=== PATIENT | female | born 1990 | race Caucasian/White ===

== ENCOUNTER → 2021-05-29 | Emergency (ER) | payer OTHER ==
[~2021-05-29] VITALS: Ht 162.6 cm; Wt 70.8 kg
[~2021-05-29] MED LIST: PRENATAL + DHA1 EAC1 PO
== END | disposition home or self-care (01) ==
LOC: ER 13:04
DX: O26.893 Other specified pregnancy related conditions, third trimester (principal); R07.89 Other chest pain; R05 Cough; Z3A.29 29 weeks gestation of pregnancy

== ENCOUNTER 2021-06-01 17:18 | Outpatient (CLI) | payer OTHER | END 2021-06-01 22:51 | disposition left against medical advice (07) | LOC: OBS/DEL 17:18 | PROVIDERS: ATTEND Obstetrics & Gynecology | DX: O36.8130 Decreased fetal movements, third trimester, not applicable or unspecified (principal); Z3A.29 29 weeks gestation of pregnancy ==

== ENCOUNTER 2021-06-09 13:24 | Outpatient (CLI) | payer OTHER | END 2021-06-09 14:04 | disposition home or self-care (01) | LOC: PRENATAL 13:24 | PROVIDERS: ATTEND Obstetrics & Gynecology Maternal & Fetal Medicine | DX: O35.3XX1 Maternal care for (suspected) damage to fetus from viral disease in mother, fetus 1 (principal); O35.0XX1 Maternal care for (suspected) central nervous system malformation in fetus, fetus 1; O98.513 Other viral diseases complicating pregnancy, third trimester; Z36.89 Encounter for other specified antenatal screening; Z3A.30 30 weeks gestation of pregnancy ==

== ENCOUNTER 2021-08-03 18:55 | Inpatient (IN) | payer OTHER ==
[~2021-08-03] VITALS: Ht 162.6 cm; Wt 77.1 kg
[2021-08-03] MEDS ORDERED: IRON325 MG (20:00)
== END 2021-08-05 15:50 | disposition home or self-care (01) | DRG 807 ==
LOC: LDR 18:55 → OB/GYN 18:55
PROVIDERS: ADMIT Obstetrics & Gynecology; ATTEND Obstetrics & Gynecology
PROC: 10E0XZZ Delivery of Products of Conception, External Approach (ICD-10-PCS; principal; 2021-08-03)
PROC: 0KQM0ZZ Repair Perineum Muscle, Open Approach (ICD-10-PCS; 2021-08-03)
PROC: 4A1HXFZ Monitoring of Products of Conception, Cardiac Rhythm, External Approach (ICD-10-PCS; 2021-08-03)
DX: O70.1 Second degree perineal laceration during delivery (principal); Z37.0 Single live birth; Z3A.38 38 weeks gestation of pregnancy

== ENCOUNTER 2021-08-12 17:34 | Inpatient (IN) | payer OTHER ==
[~2021-08-12] VITALS: Ht 162.6 cm; Wt 63.5 kg
[~2021-08-12 17:34] MED LIST changes: +IRON325 MG
[2021-08-13] MEDS ORDERED: SURFAK240 M1 PO (15:47)
[2021-08-13] MEDS ORDERED: METRONIDAZOLE500 MG PO (15:48)
[2021-08-13] MEDS ORDERED: AMOX1TAB5 PO (15:50)
== END 2021-08-13 20:35 | disposition home or self-care (01) | DRG 769 ==
LOC: ER 17:34 → O/R 08-13 07:29 → SEC-K 08-13 07:29 → O/R 08-13 14:51
PROVIDERS: ADMIT Obstetrics & Gynecology; ATTEND Obstetrics & Gynecology
PROC: 0KQM0ZZ Repair Perineum Muscle, Open Approach (ICD-10-PCS; 2021-08-13)
PROC: 10D17ZZ Extraction of Products of Conception, Retained, Via Natural or Artificial Opening (ICD-10-PCS; principal; 2021-08-13 12:00)
DX: O72.2 Delayed and secondary postpartum hemorrhage (principal); O90.1 Disruption of perineal obstetric wound

== ENCOUNTER 2021-09-25 09:27 | Emergency (ER) | payer OTHER ==
[~2021-09-25] VITALS: Ht 152.4 cm; Wt 68.0 kg
[~2021-09-25 09:27] MED LIST changes: +AMOX1TAB5 PO; +METRONIDAZOLE500 MG PO; +SURFAK240 M1 PO
[2021-09-25] MEDS ORDERED: ZINC10 M1 (09:36)
== END 2021-09-25 14:34 | disposition home or self-care (01) ==
LOC: ER 09:27
DX: N92.5 Other specified irregular menstruation (principal)

== ENCOUNTER 2021-10-19 22:40 | Emergency (ER) | payer OTHER ==
[~2021-10-19] VITALS: Ht 162.6 cm; Wt 67.1 kg
[~2021-10-19 22:40] MED LIST changes: +ZINC10 M1
[2021-10-20] MEDS ORDERED: PROTONIX40 MG PO (04:41)
[2021-10-20] MEDS ORDERED: DOLOGESIC 500-1 EACH PO (04:41)
== END 2021-10-20 04:50 | disposition home or self-care (01) ==
LOC: ER 22:40
DX: R10.13 Epigastric pain (principal); K29.70 Gastritis, unspecified, without bleeding

== ENCOUNTER 2021-10-23 19:27 | Emergency (ER) | payer OTHER ==
[~2021-10-23] VITALS: Ht 162.6 cm; Wt 65.8 kg
[~2021-10-23 19:27] MED LIST changes: +DOLOGESIC 500-1 EACH PO; +PROTONIX40 MG PO
== END 2021-10-23 23:35 | disposition home or self-care (01) ==
LOC: ER 19:27
DX: R10.9 Unspecified abdominal pain (principal)

== ENCOUNTER 2022-05-12 04:03 | Emergency (ER) | payer OTHER ==
[~2022-05-12] VITALS: Ht 170.2 cm; Wt 61.2 kg
== END 2022-05-12 11:14 | disposition home or self-care (01) ==
LOC: ER 04:03
DX: N61.0 Mastitis without abscess (principal); Z88.6 Allergy status to analgesic agent; Z87.09 Personal history of other diseases of the respiratory system

== ENCOUNTER 2023-05-30 21:31 | Emergency (ER) | payer OTHER ==
[~2023-05-30] VITALS: Ht 167.6 cm; Wt 51.7 kg
[2023-05-30] MEDS ORDERED: AMOX1TAB5 (21:43)
[2023-05-30] MEDS ORDERED: PEPCID AC20 MG (21:43)
[2023-05-31 00:58] LABS: HEMATOCRIT 37.1 % (36.0-45.00); HEMOGLOBIN 12.1 g/dL (12.0-15.00); MEAN CELL VOLUME 89.1 fL (80.00-100.00); MEAN CORPUSCULAR HEMOGLOBIN 29.1 pg (27.00-32.0); MEAN CORPUSCULAR HGB CONC 32.6 g/dl (32.0-36.0); PLATELET COUNT 277 K/uL (150-450); RED BLOOD COUNT 4.17 M/uL (4.00-6.00); RED CELL DISTRIBUTION WIDTH 13.9 % (11.5-14.5)
[2023-05-31] MEDS ORDERED: DOLOGESIC 500-1 EACH PO (04:34)
== END 2023-05-31 04:50 ==
LOC: ER 21:32
PROVIDERS: General Practice
DX: R53.81 Other malaise (principal); Z88.6 Allergy status to analgesic agent; R53.83 Other fatigue; J02.9 Acute pharyngitis, unspecified; Z20.822 Contact with and (suspected) exposure to COVID-19
CPT/HCPCS: 36415; 71046; 96365; 99284; J2405; J3490

== ENCOUNTER 2023-08-10 21:17 | Emergency (ER) | payer OTHER ==
[~2023-08-10] VITALS: Ht 162.6 cm; Wt 49.9 kg
[~2023-08-10 21:17] MED LIST changes: +AMOX1TAB5; +PEPCID AC20 MG
[2023-08-10 23:40] LABS: HEMATOCRIT 37.2 % (36.0-45.00); HEMOGLOBIN 12.9 g/dL (12.0-15.00); MEAN CELL VOLUME 90.7 fL (80.00-100.00); MEAN CORPUSCULAR HEMOGLOBIN 31.4 pg (27.00-32.0); MEAN CORPUSCULAR HGB CONC 34.6 g/dl (32.0-36.0); PLATELET COUNT 220 K/uL (150-450); RED CELL DISTRIBUTION WIDTH 14.6 % (11.5-14.5)
[2023-08-10 23:53] LABS: PH,URINE 5.5 (5.0-8.0); URINE APPEARANCE Clear; URINE BILIRRUBIN Negative (NEGATIVE); URINE BLOOD Small; URINE COLOR Yellow; URINE GLUCOSE Negative (NEGATIVE); URINE LEUKOCYTE Negative; URINE NITRATE Negative; URINE PROTEIN Negative (NEGATIVE); URINE UROBILINOGEN 0.2 E.U./dl
[2023-08-10 23:57] LABS: URINE BACTERIA 8.8 uL (0.0-1933); URINE EPITHELIAL CELLS 6.9 uL (0.0-38.8); URINE RBC 2.4 uL (0.0-20.8); URINE WBC 4.7 uL (0.0-23.2)
[2023-08-11 00:06] LABS: ALBUMIN 4.1 gm/dL (3.4-5.0); BILIRUBIN TOTAL 1.2 mg/dL (0.3-1.2); CALCIUM 9.3 mg/dL (8.5-10.1); CREATININE SERUM 0.84 mg/dL (0.55-1.02); GFR 78.57; POTASSIUM 4.37 mEq/L (3.5-5.1); TOTAL PROTEIN 8.1 gm/dL (6.4-8.2)
[2023-08-11] MEDS ORDERED: DOLOGESIC-DF 51 EACH PO (02:47)
== END 2023-08-11 02:57 ==
LOC: ER → EDBD 21:18 → ER 21:47
PROVIDERS: General Practice
DX: N93.9 Abnormal uterine and vaginal bleeding, unspecified (principal)